=== PATIENT | female | born 1995 | race Two or more races ===

== ENCOUNTER 2019-04-09 01:33 | Emergency (ER) | payer MEDICAID, SELFPAY ==
[~2019-04-09] VITALS: Ht 154.9 cm; Wt 117.6 kg
--- NOTE | 2019-04-09 01:47 | NUR ---
Patient BIB [facility] for a GLF x2. +ETOH; unknown amount. Per friends/family, patient hit her head during the falls and was vomiting. Per EMS, patient was GCS 3 and 80% on RA upon their arrival. SPO2 increased with O2. EMS started an IV and admin Zofran. Patient denies DELEON. Patient is in NAD. Respirations even and unlabored.
[2019-04-09] MEDS ORDERED: METOCLOPRAMIDE 5 MG/ML, 2ML ONE (02:18)
[2019-04-09] MEDS ORDERED: METOCLOPRAMIDE 5 MG/ML, 2ML IVPush ONE (02:30)
--- NOTE | 2019-04-09 02:36 | NUR ---
Patient up to bedside commode with assistance.
--- NOTE | 2019-04-09 04:16 | NUR ---
Patient asleep in [facility]. Respirations even and unlabored.
--- NOTE | 2019-04-09 04:50 | NUR ---
Report received and care assumed. Pt sleeping with resp even and unlabored. VSS. Pt to be d/c home when able to ambulate safely. Call light in reach.
--- NOTE | 2019-04-09 04:51 | NUR ---
Report given to JUNG Cerda.
--- NOTE | 2019-04-09 05:39 | NUR ---
Pt up to BR with steady gait. VSS. Pt is A&Ox4 and asking to go home. States she feels much better. ERP aware and ok to d/c. Pt d/c with sister.
[2019-04-09 05:40] VITALS: BP 108/54
== END 2019-04-09 05:53 | disposition home or self-care (01) ==
LOC: ED 05:53
DX: S06.9X1A Unspecified intracranial injury with loss of consciousness of 30 minutes or less, initial encounter (principal); R41.82 Altered mental status, unspecified; W18.30XA Fall on same level, unspecified, initial encounter; Y93.89 Activity, other specified; Y92.89 Other specified places as the place of occurrence of the external cause; Y99.8 Other external cause status
CPT/HCPCS: 70450; 96374; 99284; J2765